=== PATIENT | female | born 2000 | race Caucasian/White ===

== ENCOUNTER 2020-09-05 03:50 | Emergency (ER) | payer OTHER ==
[~2020-09-05 03:50] MED LIST: COLACE100 MG PO; MOTRIN600 MG PO; PHENERGAN25 M1 PO; PRENATAL FORMU1 EACH PO
[2020-09-05 04:22] LABS: BASOPHIL 0.2 % (0-2); EOSINOPHIL 1.7 % (0-5); HCT 51.8 % (37.0-47.0); HGB 17.6 g/dl (12.5-16.0); LYMPHOCYTE 8.7 % (15-48); MCH 32.3 pg (25.0-31.0); MONOCYTE 6.4 % (0-12); MPV 9.5 fL (6.0-9.5); NEUTROPHIL 82.6 % (41-80); NRBC 0; PLT 325 K/uL (150-400); RBC 5.45 M/uL (4.20-5.40); RDW 12.6 % (11.5-14.0); WBC 16.2 K/uL (4.0-10.5)
[2020-09-05 04:32] LABS: BUN/CREAT RATIO (CALC) 22.4 RATIO; CREATININE 0.76 mg/dL (0.51-0.95); POTASSIUM 3.8 mmol/L (3.5-5.1)
[2020-09-05 04:51] LABS: AMYLASE 81 U/L (25-115); LIPASE 148 U/L (73-393)
[2020-09-05 05:15] LABS: BILIRUBIN 1+ mg/dL (NEGATIVE); BLOOD NEGATIVE Ery/uL (NEGATIVE); CLARITY CLEAR (CLEAR); COLOR YELLOW (YELLOW); GLUCOSE (U) 2+ mg/dL (NORMAL); LEUKOCYTES NEGATIVE Leu/uL (NEGATIVE); NITRITE NEGATIVE (NEGATIVE); PROTEIN 1+ mg/dL (NEGATIVE); SPECIFIC GRAVITY >=1.030 (1.001-1.030); UROBILINOGEN 0.2 mg/dL (0.2-1.0); pH 5.5 (5.0-9.0)
[2020-09-05 05:24] LABS: BACTERIA TRACE; SQUAMOUS EPITHELIAL CELLS >50; URINARY WBC RARE
[2020-09-05] MEDS ORDERED: PHENERGAN25 M1 PO (05:27)
== END 2020-09-05 05:44 | disposition home or self-care (01) ==
LOC: FER 03:50
PROVIDERS: Emergency Medicine
DX: R11.2 Nausea with vomiting, unspecified (principal); F17.290 Nicotine dependence, other tobacco product, uncomplicated; Z90.49 Acquired absence of other specified parts of digestive tract; Z88.2 Allergy status to sulfonamides
CPT/HCPCS: 36415; 80048; 81001; 82150; 83690; 85025; J0780; J7040